=== PATIENT | male | born 1945 | race Two or more races ===

== ENCOUNTER 2019-09-29 04:01 | Emergency (ER) | payer OTHER ==
[~2019-09-29] VITALS: Ht 172.7 cm; Wt 73.5 kg
[2019-09-29] MEDS ORDERED: LEXAPRO5 MG (04:29)
[2019-09-29] MEDS ORDERED: VYTORIN 10-201 EACH (04:29)
[2019-09-29] MEDS ORDERED: VOLTAREN-XR100 MG PO ×2 (05:41)
== END 2019-09-29 05:50 | disposition home or self-care (01) ==
LOC: ER 04:01
DX: M25.551 Pain in right hip (principal)

== ENCOUNTER 2024-02-25 11:58 | Emergency (ER) | payer OTHER ==
[~2024-02-25] VITALS: Ht 172.7 cm; Wt 72.6 kg
[~2024-02-25 11:58] MED LIST: LEXAPRO5 MG; VOLTAREN-XR100 MG PO; VYTORIN 10-201 EACH
[2024-02-25 12:12] VITALS: BP 126/67; O2SAT 96
[2024-02-25] MEDS ORDERED: BUPROPION XL450 MG (12:16)
[2024-02-25] MEDS ORDERED: FOLIC ACID20 MG (12:16)
[2024-02-25] MEDS ORDERED: SERTRALINE20 MG/1 ML (12:16)
[2024-02-25] MEDS ORDERED: DUTASTERIDE-TA1 EACH (12:16)
[2024-02-25] MEDS ORDERED: TAMS0.4C PO (12:17)
[2024-02-25] MEDS ORDERED: NAMENDA XR28 MG PO (12:17)
[2024-02-25] MEDS ORDERED: EXELON1 EAC1 TD (12:17)
[2024-02-25] MEDS ORDERED: LIPITOR40 M1 PO (12:17)
[2024-02-25] MEDS ORDERED: CEFTRIAXONE SODIUM 1,000 MG VIAL IV ONE (12:45)
[2024-02-25] MEDS ORDERED: TAMSULOSIN HCL 0.4 MG CAP PO ONE (12:45)
[2024-02-25] MEDS ORDERED: KETOROLAC TROMETHAMINE 30 MG VIAL IU ONE (12:45)
[2024-02-25 13:02] LABS: HEMOGLOBIN 13.5 g/dL (13-16.00); MEAN CELL VOLUME 93.3 fL (80.0-100.00); MEAN CORPUSCULAR HEMOGLOBIN 31.6 pg (27.00-32.0); MEAN CORPUSCULAR HGB CONC 33.9 g/dl (32.0-36.0); PLATELET COUNT 210 K/uL (150-450); RED BLOOD COUNT 4.29 M/uL (4.00-6.00); RED CELL DISTRIBUTION WIDTH 13.2 % (11.5-14.5)
[2024-02-25 13:07] LABS: URINE APPEARANCE Clear; URINE BILIRRUBIN Negative (NEGATIVE); URINE BLOOD Negative; URINE COLOR Yellow; URINE GLUCOSE Negative (NEGATIVE); URINE KETONE Negative (NEGATIVE); URINE LEUKOCYTE Negative; URINE NITRATE Negative; URINE PROTEIN Negative (NEGATIVE); URINE UROBILINOGEN 0.2 E.U./dl
[2024-02-25 13:09] LABS: URINE BACTERIA 7.5 uL (0.0-1933); URINE EPITHELIAL CELLS 3.3 uL (0.0-38.8); URINE RBC 10.5 uL (0.0-20.8); URINE WBC 2.1 uL (0.0-23.2)
[2024-02-25 13:32] LABS: BILIRUBIN TOTAL 0.7 mg/dL (0.3-1.2); CALCIUM 9.4 mg/dL (8.5-10.1); CREATININE SERUM 1.19 mg/dL (0.70-1.30); GFR 58.82; GLOBULINA 3.1 G/DL (2.4-3.5); POTASSIUM 4.16 mEq/L (3.5-5.1); TOTAL PROTEIN 7.1 gm/dL (6.4-8.2)
== END 2024-02-25 16:01 | disposition home or self-care (01) ==
LOC: ER 12:00
PROVIDERS: General Practice
DX: R10.9 Unspecified abdominal pain (principal); G30.8 Other Alzheimer's disease; F02.80 Dementia in other diseases classified elsewhere, unspecified severity, without behavioral disturbance, psychotic disturbance, mood disturbance, and anxiety; K57.30 Diverticulosis of large intestine without perforation or abscess without bleeding
CPT/HCPCS: 36415; 74177; 99284; Q9965

== ENCOUNTER 2024-06-03 01:27 | Emergency (ER) | payer OTHER ==
[~2024-06-03] VITALS: Ht 172.7 cm; Wt 72.6 kg
[~2024-06-03 01:27] MED LIST changes: +AVODART0.5 MG; +BUPROPION XL450 MG; +CIALIS5 MG; +CIPRO500 MG PO; +DUTASTERIDE-TA1 EACH; +EXELON1 EAC1 TD; +FLAGYL500MG PO; +FLUCONAZOLE100 MG PO; +FOLIC ACID20 MG; +INTESTINEX680 M1; +INTESTINEX680 M1 PO; +LEXAPRO20 MG; +LEXAPRO20 MG PO; +LIPITOR40 M1 PO; +NAMENDA XR28 MG PO; +PEPCID AC20 MG; +SERTRALINE20 MG/1 ML; +TAMS0.4C PO; +TAMSULOSIN HCL0.4 MG PO; +ULTRACET PO; +VOLTAREN100 GM
[2024-06-03] MEDS ORDERED: MAXIMUM D3325 MCG PO (01:51)
[2024-06-03] MEDS ORDERED: VITAMIN B-121000 MC1 PO (01:51)
[2024-06-03] MEDS ORDERED: FISH OIL 1,0001 EAC5 PO (01:52)
[2024-06-03] MEDS ORDERED: TETANUS & DIPHTHERIA TOX,ADULT 0.5 ML VIAL IM STA (02:47)
[2024-06-03] MEDS ORDERED: CEFAZOLIN SODIUM 1,000 MG VIAL IM STA (02:48)
== END 2024-06-03 03:33 | disposition home or self-care (01) ==
LOC: ER 01:27
DX: S01.81XA Laceration without foreign body of other part of head, initial encounter (principal); W18.39XA Other fall on same level, initial encounter; Y93.89 Activity, other specified; Y92.018 Other place in single-family (private) house as the place of occurrence of the external cause; Y99.9 Unspecified external cause status
CPT/HCPCS: 12011; 90471; 90714; 96372; 99283; J0690; J1670